=== PATIENT | male | born 1975 | race Caucasian/White ===

== ENCOUNTER 2021-12-19 08:23 | Emergency (ER) | payer MEDICAID ==
[~2021-12-19] VITALS: Ht 152.4 cm; Wt 54.4 kg
[2021-12-19 10:29] VITALS: BP 101/57
[2021-12-19] MEDS ORDERED: ALBU6.7H15 INH (11:01)
== END 2021-12-19 11:59 | disposition home or self-care (01) ==
LOC: ER 08:23
DX: Z20.822 Contact with and (suspected) exposure to COVID-19 (principal); R05.9 Cough, unspecified
CPT/HCPCS: 71045; 87426; 99284